=== PATIENT | female | born 1960 | race Caucasian/White ===

== ENCOUNTER 2018-08-24 09:27 | Outpatient (CLI) | payer OTHER | END 2018-08-24 09:28 | disposition short-term general hospital (02) | LOC: EMS 09:27 | PROVIDERS: ATTEND Surgery | DX: R07.9 Chest pain, unspecified (principal); R06.00 Dyspnea, unspecified; S82.892B Other fracture of left lower leg, initial encounter for open fracture type I or II; V89.2XXA Person injured in unspecified motor-vehicle accident, traffic, initial encounter; W22.11XA Striking against or struck by driver side automobile airbag, initial encounter; Y92.413 State road as the place of occurrence of the external cause | CPT/HCPCS: A0425; A0427 ==

== ENCOUNTER 2022-03-13 08:00 | Outpatient (CLI) | payer OTHER | END 2022-03-13 23:59 | disposition home or self-care (01) | LOC: LAB.N 08:00 | PROVIDERS: ATTEND Registered Nurse | DX: R05.1 Acute cough (principal); Z20.822 Contact with and (suspected) exposure to COVID-19 ==